=== PATIENT | female | born 1965 | race Caucasian/White ===

== ENCOUNTER 2023-12-29 05:47 | Observation (INO) ==
--- NOTE | 2023-12-07 15:17 | PAT Medication Instructions ---
Medication Instructions Date of Service December 07, 2023 Home Medications Stellalise 1 applic PO QID PRN acetaminophen 325 mg capsule (Tylenol) 650 mg PO QID PRN baclofen 5 mg tablet 5 mg PO DAILY PRN cholecalciferol (vitamin D3) 50 mcg (2,000 unit) capsule (Vitamin D3) 50 mcg PO QAM clonazepam 0.5 mg tablet 0.25 mg PO BID coenzyme Q10 200 mg capsule (Co Q-10) 200 mg PO HS empagliflozin 10 mg tablet (Jardiance) 10 mg PO QAM gabapentin 300 mg capsule 300 mg PO TID PRN hydroxychloroquine 200 mg tablet 200 mg PO QAM insulin glargine 100 unit/mL (3 mL) subcutaneous pen (Lantus Solostar U-100 Insulin) 46 unit subcut HS insulin lispro-aabc 100 unit/mL subcutaneous pen (Lyumjev KwikPen U-100 Insulin) 3 unit subcut TID meloxicam 15 mg tablet 7.5 - 15 mg PO UD methylprednisolone 2 mg tablet 1 mg PO UD metoprolol succinate 25 mg tablet,extended release 24 hr 25 mg PO QAM montelukast 10 mg tablet 10 mg PO QAM oxymetazoline 1 % topical cream (Rhofade) 1 applic topical QAM rosuvastatin 20 mg tablet 20 mg PO HS sacubitril 24 mg-valsartan 26 mg tablet (Entresto) 1 tab PO BID spironolactone 25 mg tablet 25 mg PO QAM venlafaxine 150 mg capsule,extended release 24 hr 150 mg PO QAM vitamin E 2 tab PO QAM STOP 3 days before surgery empagliflozin 10 mg tablet (Jardiance) 10 mg PO QAM Continue as directed methylprednisolone 2 mg tablet 1 mg PO UD baclofen 5 mg tablet 5 mg PO DAILY PRN(if needed) ASK your surgeon for instructions meloxicam 15 mg tablet 7.5 - 15 mg PO UD ASK your prescriber and surgeon hydroxychloroquine 200 mg tablet 200 mg PO QAM STOP taking 2 weeks before surgery (or as soon as possible if surgery is within 2 weeks) vitamin E 2 tab PO QAM coenzyme Q10 200 mg capsule (Co Q-10) 200 mg PO HS STOP taking 24 hours before surgery oxymetazoline 1 % topical cream (Rhofade) 1 applic topical QAM DO NOT take the morning of surgery Stellalise 1 applic PO QID PRN cholecalciferol (vitamin D3) 50 mcg (2,000 unit) capsule (Vitamin D3) 50 mcg PO QAM insulin lispro-aabc 100 unit/mL subcutaneous pen (Lyumjev KwikPen U-100 Insulin) 3 unit subcut TID sacubitril 24 mg-valsartan 26 mg tablet (Entresto) 1 tab PO BID spironolactone 25 mg tablet 25 mg PO QAM Take morning of surgery With a small sip of water, OTHERWISE NOTHING TO EAT OR DRINK AFTER MIDNIGHT: acetaminophen 325 mg capsule (Tylenol) 650 mg PO QID PRN(if needed) clonazepam 0.5 mg tablet 0.25 mg PO BID gabapentin 300 mg capsule 300 mg PO TID PRN(if needed) metoprolol succinate 25 mg tablet,extended release 24 hr 25 mg PO QAM montelukast 10 mg tablet 10 mg PO QAM venlafaxine 150 mg capsule,extended release 24 hr 150 mg PO QAM Take evening before surgery Stellalise 1 applic PO QID PRN(if needed) acetaminophen 325 mg capsule (Tylenol) 650 mg PO QID PRN(if needed) clonazepam 0.5 mg tablet 0.25 mg PO BID gabapentin 300 mg capsule 300 mg PO TID PRN(if needed) insulin glargine 100 unit/mL (3 mL) subcutaneous pen (Lantus Solostar U-100 Insulin) 46 unit subcut HS insulin lispro-aabc 100 unit/mL subcutaneous pen (Lyumjev KwikPen U-100 Insulin) 3 unit subcut TID rosuvastatin 20 mg tablet 20 mg PO HS sacubitril 24 mg-valsartan 26 mg tablet (Entresto) 1 tab PO BID Other Notes If you have any questions please call us at [phone] or [phone] or [phone] or [phone]
--- NOTE | 2023-12-15 13:52 | Anesthesiology Consultation ---
Date of Service December 15, 2023 Assessment & Plan (1) Encounter for pre-operative examination: - Check BSG - Check coags AM DOS (hemolyzed specimen on preop coags- will order for DOS) - Infectious disease screening: Per assessment on 12/15/23: No known infectious disease contacts or current infectious disease symptoms. No noted recent Covid positive test result. - Cardiology visit (10/21/23): "Non ischemic cardiomyopathy, recovered EF now 50- 55%. nuclear stress testing showed no evidence of ischemia, euvolemic on exam.. Check routine echo in 1 year.. Palpitations- improved, c/w PVCs on Cardionet" - Cardiology note (11/29/23): "Low risk.. Patient is cleared for scheduled surgery " - Abnormal preop EKG: ST/TWA, consider anterolateral ischemia. Patient already cleared by cardiology but preop EKG was done after risk assessment and no comparison EKGs available. Note written to cardiology and preop EKG forwarded to them for their review. Cardiology note/response (12/16/23): "No further testing needing from cardiac standpoint. Ok to be cleared. Normal EF on Echo 06/2023." - PCP visit (12/06/23): "Will addend note based on pre-op labs. Plan to clear.." Preop testing forwarded to PCP. Awaiting final PCP clearance (Dr. Henrietat Rivera/[facility]). Patient otherwise acceptable risk for surgery. Chart Review Chart Review: Patient seen in Pre Admission Testing Teaching & Discussion Pre-Anesthesia Teaching/Discussion Notes: Instructed NPO after midnight before surgery,except medications with 15 cc of water. Medication instructions provided according to the PAT guidelines. History Surgery Operation Date: 12/29/23 07:45 Proposed Procedures p C5-C7 Anterior Cervical Discectomy Fusion with Spinal Cord Monitoring - Aung Zapien DO Height/Weight Height: 5 ft 5 in Weight: 85.6 kg Allergies Allergy/AdvReac Type Severity Reaction Status Date / Time atorvastatin Allergy Unknown Verified 12/16/23 10:38 celecoxib Allergy Unknown Verified 12/16/23 10:38 codeine Allergy Unknown Verified 12/16/23 10:38 divalproex sodium Allergy Unknown Verified 12/16/23 10:38 hydrocodone Allergy Unknown Verified 12/16/23 10:38 imipramine Allergy Tongue Verified 12/16/23 10:38 swelling, "funny feeling" penicillin G Allergy Hives Verified 12/01/23 13:41 Penicillins Allergy See Verified 12/16/23 10:38 comments pregabalin Allergy Unknown Verified 12/16/23 10:38 sertraline Allergy Tongue Verified 12/16/23 10:38 swelling, "funny feeling" Medications Home Medications Medication Instructions Recorded Confirmed Last Taken Stellalise 1 applic PO QID PRN oral pain 12/01/23 12/01/23 Unknown acetaminophen 325 mg capsule 650 mg PO QID PRN Pain 12/01/23 12/01/23 Unknown (Tylenol) baclofen 5 mg tablet 5 mg PO DAILY PRN muscle spasms 12/01/23 12/01/23 Unknown cholecalciferol (vitamin D3) 50 50 mcg PO QAM 12/01/23 12/01/23 Unknown mcg (2,000 unit) capsule (Vitamin D3) clonazepam 0.5 mg tablet 0.25 mg PO UD 12/01/23 12/16/23 Unknown coenzyme Q10 200 mg capsule (Co 200 mg PO DAILY 12/01/23 12/16/23 Unknown Q-10) empagliflozin 10 mg tablet 10 mg PO QAM 12/01/23 12/01/23 Unknown (Jardiance) gabapentin 300 mg capsule 300 mg PO TID PRN Pain 12/01/23 12/01/23 Unknown hydroxychloroquine 200 mg tablet 200 mg PO QAM 12/01/23 12/01/23 Unknown insulin glargine 100 unit/mL (3 46 unit subcut HS 12/01/23 12/01/23 Unknown mL) subcutaneous pen (Lantus Solostar U-100 Insulin) insulin lispro-aabc 100 unit/mL 3 unit subcut TID 12/01/23 12/01/23 Unknown subcutaneous pen (Lyumjev KwikPen U-100 Insulin) meloxicam 15 mg tablet 7.5 - 15 mg PO UD 12/01/23 12/01/23 Unknown methylprednisolone 2 mg tablet 1 mg PO UD 12/01/23 12/01/23 Unknown metoprolol succinate 25 mg 25 mg PO QAM 12/01/23 12/01/23 Unknown tablet,extended release 24 hr montelukast 10 mg tablet 10 mg PO QAM 12/01/23 12/01/23 Unknown oxymetazoline 1 % topical cream 1 applic topical QAM 12/01/23 12/01/23 Unknown (Rhofade) rosuvastatin 20 mg tablet 20 mg PO HS 12/01/23 12/01/23 Unknown sacubitril 24 mg-valsartan 26 mg 1 tab PO BID 12/01/23 12/01/23 Unknown tablet (Entresto) spironolactone 25 mg tablet 25 mg PO QAM 12/01/23 12/01/23 Unknown venlafaxine 150 mg 150 mg PO QAM 12/01/23 12/01/23 Unknown capsule,extended release 24 hr vitamin E 2 tab PO QAM 12/01/23 12/01/23 Unknown Past Medical History Medical History BPV (benign positional vertigo) Diabetes mellitus, type 2 IDDM History of COVID-19 08/2020 (home test): symptoms resolved except residual intermittent cough (nighttime) Hx-TIA (transient ischemic attack) 2009 Hyperlipidemia Hypertension [facility] Migraines Nonischemic cardiomyopathy Follows with Dr. Hazel PVCs (premature ventricular contractions) Rheumatoid arthritis Per received PCP records Undifferentiated connective tissue disease Reason for chronic methylprednisolone per patient Exercise / Class Metabolic Activity II 4-5 Yardwork/Stairs/Walk up hill (one FS: no CP, no SOB) Past Surgical History Surgical History History of esophagogastroduodenoscopy (EGD) Hx of colonoscopy Hx of shoulder surgery left Hx of total hysterectomy with removal of both tubes and ovaries Nausea and vomiting after administration of anesthetic agent years ago, fine with most recent sx on shoulder Past Anesthesia History No Family Hx of Anesthesia Complications (except mother with PONV) History of PONV History of PONV and Hx of Motion Sickness (Mild) Social History Smoking Status: Never smoker Do You Dip or Chew Tobacco: No Hx Alcohol Use: Yes alcohol intake frequency: holidays/special occasions only Hx Substance Use: No substance use type: does not use Review of Systems Patient denies chest pain, shortness of breath, dyspnea on exertion, fever, chills, cough, wheezing, palpitations. Physical Exam Vital Signs BP 103/68 P 75 TEMP 97.9 SP02 97%RA RESP 18 Physical Full cervical extension range of motion. Full TMJ range of motion. TMD 3 finger breaths Mallampati Score 3 Dentition: intact, + crown (molar) Lungs: clear throughout to auscultation Cardiac: regular rate and rhythm, no murmurs noted Spine: normal Carotid arteries: negative bruit Extremities: no LE edema Lab Results Anesthesia Preop Results Results Anesthesia Widget: WBC 8.60 K/ul (4.8-10.8) 12/15/23 Hgb 14.3 g/dl (12.0-16.0) 12/15/23 Hct 41.9 % (37.0-47.0) 12/15/23 Plt 269 K/uL (130-400) 12/15/23 Na 140 mmol/L (136-145) 12/15/23 K 4.4 mmol/L (3.5-5.1) 12/15/23 Cl 104 mmol/L (98-107) 12/15/23 CO2 28 mmol/L (21-32) 12/15/23 BUN 21 mg/dl (6-23) 12/15/23 Creat 0.64 mg/dl (0.6-1.2) 12/15/23 Glucose Level 118 mg/dl (70-99(Fasting)) H 12/15/23 Urine Color Yellow 12/15/23 Urine Appearance Clear (Clear) 12/15/23 Urine pH 5.0 (4.5-7.5) 12/15/23 Urine Specific [place] 1.044 (1.000-1.030) H 12/15/23 Urine Protein Negative (Negative) 12/15/23 Urine Glucose (UA) 3+ (Negative) H 12/15/23 Urine Ketones Negative (Negative) 12/15/23 Urine Blood Negative (Negative) 12/15/23 Urine Nitrite Negative (Negative) 12/15/23 Urine Bilirubin Negative (Negative) 12/15/23 Urine Urobilinogen Negative (Negative) 12/15/23 Urine Leukocyte Esterase Negative (Negative) 12/15/23 Blood Type A Positive 12/15/23 Antibody Screen NEGATIVE 12/15/23 Testing Laboratory Results Hgba1c (11/22/23): 7.7% Electrocardiogram Date: 12/15/[address]/TWA, consider anterolateral ischemia. Prolonged QT. Echocardiogram Date: 07/16/23 EF 50-55%. Thickened aortic valve. Aortic valve area is 1.9cm2, MG 3.8mmhg. Mild TR. Normal diastolic function. Stress Test Date: 06/01/22 No clear perfusion defect, but there is systolic LV dysfunction, rest EF 42%, post stress EF 46%. Mild diffuse HK. Non-diagnostic ECG response to regadenoson. LBBB.
[2023-12-29] MEDS: VANCOMYCIN HCL 1,250 MG in SODIUM CHLORIDE 0.9% 250 ML IV SCH (06:19)
[2023-12-29] MEDS: GABAPENTIN 600 MG DOSE PO SCH (06:19)
[2023-12-29] MEDS: ACETAMINOPHEN 500 MG TAB PO SCH (06:19)
[2023-12-29] MEDS: LR 15ML/HR IV SCH (06:20)
[2023-12-29] MEDS: LR 60ML/HR IV SCH (06:20)
[2023-12-29] MEDS ORDERED: LIDOCAINE 2% 2 ML VIAL/AMP(20MG/ML) INFIL ONE (06:57)
[2023-12-29] MEDS ORDERED: DEXAMETHASONE SOD INJ 4 MG/ML VIAL ONE (06:57)
[2023-12-29] MEDS ORDERED: ROCURONIUM BROMIDE 10 MG/ML 5 ML VIAL IV ONE ×2 (06:57→08:25)
[2023-12-29] MEDS ORDERED: ONDANSETRON INJ 2 MG/ML 2 ML VIAL ONE (06:57)
[2023-12-29] MEDS ORDERED: PROPOFOL IV EMULSION 10 MG/ML 20 ML VIAL IV ONE ×3 (06:57→07:01)
[2023-12-29] MEDS ORDERED: MIDAZOLAM HCL 1 MG/ML 2ML VIAL ONE (06:58)
[2023-12-29] MEDS ORDERED: fentaNYL citrate PF 100 MCG/2 ML VIAL ONE ×2 (06:58→08:29)
[2023-12-29 07:03] LABS: INR 0.9 (0.9-1.1); Partial Thromboplastin Time 27 Seconds (21-31); Prothrombin Time 10.2 Seconds (9.0-12.0)
[2023-12-29] MEDS ORDERED: PROMETHAZINE HCL 6.25 MG in SODIUM CHLORIDE 0.9% 50 ML IV PRN (07:06)
[2023-12-29] MEDS ORDERED: ATROPINE SULFATE 0.1 MG/ML 10ML SYR IV PRN (07:06)
[2023-12-29] MEDS ORDERED: ePHEDrine sulfate 50 MG/ML AMP IV PRN (07:06)
[2023-12-29] MEDS ORDERED: ONDANSETRON INJ 2 MG/ML 2 ML VIAL IV PRN ×2 (07:06→11:06)
[2023-12-29] MEDS ORDERED: PHENYLEPHRINE HCL 10 MG/ML VIAL ONE (07:23)
--- NOTE | 2023-12-29 07:40 | History & Physical Report ---
Date of Service December 29, 2023 Assessment & Plan (1) Cervical stenosis of spinal canal: Plan: Anterior cervical discectomy and fusion C5-C7 History of Present Illness Chief Complaint: Neck and arm pain Primary Care Provider: Henrietta Rivera DO This is a 58-year-old female presents with chronic persistent neck and arm pain after failing extensive course of nonoperative care is here for surgical intervention. Allergies Allergy/AdvReac Type Severity Reaction Status Date / Time atorvastatin Allergy Unknown Verified 12/29/23 06:13 celecoxib Allergy Unknown Verified 12/29/23 06:13 codeine Allergy Unknown Verified 12/29/23 06:13 divalproex sodium Allergy Unknown Verified 12/29/23 06:13 hydrocodone Allergy Unknown Verified 12/29/23 06:13 imipramine Allergy Tongue Verified 12/29/23 06:13 swelling, "funny feeling" penicillin G Allergy Hives Verified 12/29/23 06:13 Penicillins Allergy See Verified 12/29/23 06:13 comments pregabalin Allergy Unknown Verified 12/29/23 06:13 sertraline Allergy Tongue Verified 12/29/23 06:13 swelling, "funny feeling" Home Medications Medication Instructions Recorded Confirmed Type Stellalise 1 applic PO QID PRN oral pain 12/01/23 12/29/23 History acetaminophen 325 mg capsule 650 mg PO QID PRN Pain 12/01/23 12/29/23 History (Tylenol) baclofen 5 mg tablet 5 mg PO DAILY PRN muscle spasms 12/01/23 12/29/23 History cholecalciferol (vitamin D3) 50 50 mcg PO QAM 12/01/23 12/29/23 History mcg (2,000 unit) capsule (Vitamin D3) clonazepam 0.5 mg tablet 0.25 mg PO UD 12/01/23 12/29/23 History coenzyme Q10 200 mg capsule (Co 200 mg PO DAILY 12/01/23 12/29/23 History Q-10) empagliflozin 10 mg tablet 10 mg PO QAM 12/01/23 12/29/23 History (Jardiance) gabapentin 300 mg capsule 300 mg PO TID PRN Pain 12/01/23 12/29/23 History hydroxychloroquine 200 mg tablet 200 mg PO QAM 12/01/23 12/29/23 History insulin glargine 100 unit/mL (3 46 unit subcut HS 12/01/23 12/29/23 History mL) subcutaneous pen (Lantus Solostar U-100 Insulin) insulin lispro-aabc 100 unit/mL 3 unit subcut TID 12/01/23 12/29/23 History subcutaneous pen (Lyumjev KwikPen U-100 Insulin) meloxicam 15 mg tablet 7.5 - 15 mg PO UD 12/01/23 12/29/23 History methylprednisolone 2 mg tablet 1 mg PO UD 12/01/23 12/29/23 History metoprolol succinate 25 mg 25 mg PO QAM 12/01/23 12/29/23 History tablet,extended release 24 hr montelukast 10 mg tablet 10 mg PO QAM 12/01/23 12/29/23 History oxymetazoline 1 % topical cream 1 applic topical QAM 12/01/23 12/29/23 History (Rhofade) rosuvastatin 20 mg tablet 20 mg PO HS 12/01/23 12/29/23 History sacubitril 24 mg-valsartan 26 mg 1 tab PO BID 12/01/23 12/29/23 History tablet (Entresto) spironolactone 25 mg tablet 25 mg PO QAM 12/01/23 12/29/23 History venlafaxine 150 mg 150 mg PO QAM 12/01/23 12/29/23 History capsule,extended release 24 hr vitamin E 2 tab PO QAM 12/01/23 12/29/23 History Past Med/Surg History Medical History BPV (benign positional vertigo) Diabetes mellitus, type 2 IDDM History of COVID-19 08/2020 (home test): symptoms resolved except residual intermittent cough (nighttime) Hx-TIA (transient ischemic attack) 2009 Hyperlipidemia Hypertension Liver disease Non-alcoholic Follows with Dr. Thompson ([facility] [place]) Migraines Nonischemic cardiomyopathy Follows with Dr. Hazel PVCs (premature ventricular contractions) Rheumatoid arthritis Per received PCP records Undifferentiated connective tissue disease Reason for chronic methylprednisolone per patient Surgical History History of esophagogastroduodenoscopy (EGD) Hx of colonoscopy Hx of shoulder surgery left Hx of total hysterectomy with removal of both tubes and ovaries Nausea and vomiting after administration of anesthetic agent years ago, fine with most recent sx on shoulder Social History Smoking Status: Never smoker Second Hand Exposure: Yes (hx as child); Do You Dip or Chew Tobacco: No; Tobacco Cessation Education Requested by Patient: No Hx Alcohol Use: Yes Hx Substance Use: No Preferred Language: Trinidadian Communication Ability: Effective Horologist Required: No Beliefs That Will Affect Care: None Current Living Situation: Spouse and Family Other Information That Helps Us Care for You: No Feels Safe at Home: Yes Safety Concerns: Feels Safe At This Time Assistive Devices: Contacts and Glasses Physical Exam Physical Exam: Patient is alert and oriented Heart regular rhythm Lungs clear Results & Data Results & Data Vital Signs (Past 12 Hours) Vital Signs Temp Pulse Resp BP Pulse Ox O2 Del Method 12/29/23 06:05 37.1 C 72 20 132/54 L 96 Room Air
--- NOTE | 2023-12-29 07:40 | History & Physical Bridge Note ---
Date of Service December 29, 2023 History & Physical Bridge Note I have examined the patient, reviewed the History & Physical and in the interval since the performance of the History & Physical I have noted the following changes of clinical significance: no changes noted
[2023-12-29] MEDS: BUPIVACAINE/EPINEPHRINE 0.5% MPF 1:200,000 30 ML VIAL ONE (08:26)
[2023-12-29] MEDS: BUPIVACAINE/EPINEPHRINE 0.25% 1:200,000 30 ML VIAL ONE (08:27)
[2023-12-29] MEDS ORDERED: ePHEDrine sulfate 50 MG/5 ML SYR ONE (08:44)
[2023-12-29] MEDS: ceFAZolin 330 MG/ML 1 GM VIAL ONE (09:08)
[2023-12-29] MEDS ORDERED: SUGAMMADEX SODIUM 200 MG/2 ML VIAL IV ONE (09:09)
--- NOTE | 2023-12-29 09:14 | Operative Report ---
Post Operative Report Pre & Post Diagnosis Operation Date: 12/29/23 07:45 Pre-Op Diagnosis: Cervical spondylosis with radiculopathy Post-Op Diagnosis: Same I identified the patient and participated in the time-out.: Yes Procedure Operation Date: 12/29/23 07:45 Actual Procedures #1 anterior cervical discectomy with bilateral foraminotomies C5-C6 C6-C7. #2 anterior cervical arthrodesis C5-C6 C6-C7. #3 placement of Spira 7 mm cage at C5-C6 and 8 mm cage at C6-C7 both filled with I factor. #4 application of K2 M plate and screws from C5-C7. Surgeon Aung Zapien, Float Tender Vero Mckenna Estimated Blood Loss 10 Findings Consistent with Post-Op Diagnosis Specimens None Indications This is a 58-year-old female presents above-mentioned diagnosis after failing course of nonoperative care is here for surgical invention. Description of Procedure Patient was met with identified informed consent obtained. Patient was then taken to the operative suite underwent intubation placed in a supine position the Ryan table with head [place] head wrestling coach. All bony prominences well- padded eyes inspected to ensure no external pressure placed upon them. This point the anterior cervical spine was prepped and draped in normal sterile fashion. With the assistance of fluoroscopy identified the C6 vertebral body and a transverse incision was placed along the right anterior aspect of the cervical spine overlying his region. Blunt dissection with the assistance of bipolar Cardizem form down to and exposing the anterior cervical spine from C5- C7. Self-retaining retractors placed. Then performed a complete discectomy of C5-C6 out to the uncovertebral joints bilaterally. Silver Star distracting pins utilized to assist in visualization. Removed all posterior annular fibers longitudinal ligament bilateral foraminotomies were performed. Endplates burred to subcortical bleeding bone and a 7 mm Spira cage filled with I factor tapped in position. Then proceeded to C6-C7. Again complete discectomy performed to the uncompleted joints bilaterally. Silver Star distraction pins again utilized. Removed all posterior annular fibers longitudinal ligament bilateral foraminotomies performed and a 8 mm Spira cage with I factor tapped in position. Distracting apparatus was removed. All anterior osteophytes burred to a smooth cortical surface and a K2 M plate and screws applied with the assistance of fluoroscopy. The incision was then copiously irrigated explored to ensure no damage to surrounding structures remaining bleeding. 10 round SAMIR drain inserted. The incision was then closed with 2 Vicryl in the fascia and 4 Monocryl for final skin closure. Steri-Strip sterile dressing placed. Patient awakened taken to PACU stable condition. Please note spinal cord monitoring visualized at the procedure no changes noted. Lastly Vero Mckenna was present at the entire surgeon while the patient positioning complex course of the surgery and final skin closure. I attest to the content of the Intraoperative Record and any orders documented therein. Any exceptions are noted below.
[2023-12-29] MEDS: fentaNYL citrate PF 100 MCG/2 ML VIAL IV PRN (10:21)
[2023-12-29] MEDS: FLOSEAL HEMOSTATIC MATRIX 10ML TOP ONE (10:41)
[2023-12-29] MEDS: SODIUM CHLORIDE 0.9% 1,000 ML IV SCH (10:55)
[2023-12-29] MEDS ORDERED: diphenhydrAMINE Capsule 25 MG CAP PO PRN (11:06)
[2023-12-29] MEDS ORDERED: LORazepam 0.5 MG in SYRINGE 0.25 ML IV PRN (11:06)
[2023-12-29] MEDS ORDERED: MAGNESIUM HYDROXIDE SUSP 30 ML UDC PO PRN (11:06)
[2023-12-29] MEDS ORDERED: bisacodyL 10 MG SUPP PR PRN (11:06)
[2023-12-29] MEDS ORDERED: dexAMETHasone 8 MG in SYRINGE 0 ML IV PRN (11:06)
[2023-12-29] MEDS ORDERED: HYDROmorphone INJ 0.5 MG/0.5 ML SYR IV PRN (11:06)
[2023-12-29] MEDS ORDERED: DO NOT ADMINISTER PNEUMOCOCCAL VACCINE PRN (11:06)
[2023-12-29] MEDS ORDERED: clonazePAM 0.5 MG TAB PO SCH (11:06)
[2023-12-29] MEDS ORDERED: ONDANSETRON 4 MG OD TAB PO PRN (11:06)
[2023-12-29] MEDS ORDERED: PROMETHAZINE HCL 12.5 MG in SODIUM CHLORIDE 0.9% 50 ML IV PRN (11:06)
[2023-12-29] MEDS ORDERED: GABAPENTIN 300 MG CAP PO PRN (11:06)
[2023-12-29] MEDS ORDERED: FAMOTIDINE 20 MG TAB PO PRN (11:06)
[2023-12-29] MEDS ORDERED: SOD PHOSPHATE/SOD BIPHOSPHATE ENEMA 132 ML BTL PR PRN (11:06)
[2023-12-29] MEDS ORDERED: ACETAMINOPHEN 500 MG TAB PO PRN (11:06)
[2023-12-29] MEDS ORDERED: LORazepam 0.5 MG TAB PO PRN (11:06)
[2023-12-29] MEDS ORDERED: PHARMACY GLYCEMIC MGMT CONSULT PRN (11:06)
[2023-12-29] MEDS ORDERED: DO NOT ADMINISTER FLU VACCINE PRN (11:06)
[2023-12-29] MEDS ORDERED: METOCLOPRAMIDE HCL INJ 5 MG/ML 2 ML VIAL IV PRN (11:06)
[2023-12-29] MEDS ORDERED: hydrOXYzine HCl 25 MG TAB PO PRN (11:06)
[2023-12-29] MEDS ORDERED: ACETAMINOPHEN 1,000 MG/100 ML VIAL IV PRN (11:06)
[2023-12-29] MEDS ORDERED: RACEPINEPHRINE 2.25% NEBU SOLN 0.5 ML VIAL INH PRN (11:06)
[2023-12-29] MEDS ORDERED: ALUMINUM/MAGNESIUM SUSP 30 ML UDC PO PRN (11:06)
[2023-12-29] MEDS ORDERED: NALOXONE HCL 0.4 MG/1 ML VIAL/CARP IV PRN (11:06)
--- NOTE | 2023-12-29 11:34 | Fluoroscopy Report ---
FL cervical 2-3V CLINICAL HISTORY: C5-C7 ACDF COMPARISON STUDY: None. FLUOROSCOPY TIME: 12 seconds FLUOROSCOPY IMAGES: 3 Ka,r: 2.0 mGy FINDINGS: Anterior cervical discectomy and fusion from C5 through C7. The hardware appears intact. An endotracheal tube and surgical drain are partially visualized. IMPRESSION: Fluoroscopic assistance as above. ACT 112: Negative or not required by law. Electronically signed by: Piero Burns M.D. 12/29/2023 11:33 AM
--- NOTE | 2023-12-29 11:36 | Anesthesiology Progress Note ---
Date of Service December 29, 2023 Anesthesia Post Procedure Vital Signs Vital Signs: Temp Pulse Pulse Resp BP BP Pulse Ox 12/29/23 11:20 97.5 F L 75 18 115/76 97 12/29/23 11:02 18 97 12/29/23 10:50 12/29/23 10:50 97.9 F 75 16 136/86 96 12/29/23 10:30 97.7 F 68 14 113/84 92 12/29/23 10:20 66 14 118/78 96 12/29/23 10:10 70 14 133/74 97 12/29/23 10:00 65 14 127/86 98 12/29/23 09:50 64 12 137/70 97 12/29/23 09:40 67 12 132/77 100 12/29/23 09:30 97.7 F 67 14 137/81 95 12/29/23 06:05 98.8 F 72 20 132/54 L 96 O2 Del Method O2 Flow Rate 12/29/23 11:20 Nasal Cannula 2 12/29/23 11:02 Nasal Cannula 2 12/29/23 10:50 Nasal Cannula 2 12/29/23 10:50 Nasal Cannula 2 12/29/23 10:30 Nasal Cannula 2 12/29/23 10:20 Nasal Cannula 2 12/29/23 10:10 Nasal Cannula 2 12/29/23 10:00 Nasal Cannula 2 12/29/23 09:50 Nasal Cannula 2 12/29/23 09:40 Oxymask 5 12/29/23 09:30 Oxymask 10 12/29/23 06:05 Room Air Pain Intensity Left Lower Neck: Pain Intensity: 7 Neck: Pain Intensity: 2 Transfer of Care Handoff Completed per policy Notes Mental Status: alert / awake / arousable and participated in evaluation Patient Amnestic to Procedure: Yes Nausea / Vomiting: adequately controlled Pain: adequately controlled Airway Patency, RR, SpO2: stable & adequate BP & HR: stable & adequate Hydration State: stable & adequate Anesthetic Complications: no major complications apparent and Pt Satisfied with anesthetic care
[2023-12-29] MEDS: traMADol HCL 50 MG TABLET PO PRN (11:57)
[2023-12-29] MEDS ORDERED: GLUCOSE 40% GEL 15 GM TUBE PO PRN (12:15)
[2023-12-29] MEDS ORDERED: CARBOHYDRATES FOR HYPOGLYCEMIA PO PRN (12:15)
[2023-12-29] MEDS ORDERED: GLUCOSE 10 TAB/TUBE PO PRN (12:15)
[2023-12-29] MEDS ORDERED: GLUCAGON FOR INJ 1 MG VIAL IM PRN (12:15)
[2023-12-29] MEDS ORDERED: DEXTROSE 50% 50 ML SYRINGE IV PRN (12:15)
--- NOTE | 2023-12-29 12:15 | Pharmacy Report ---
Pharmacy Glycemic Short Note 2 - Date of Service December 29, 2023 - Glycemic Short BSG Results (Last 24 hours): 12/29/23 12/29/23 12/29/23 06:10 09:33 10:58 POC Glucose 173 H 187 H 202 H OUTPATIENT ANTIDIABETIC REGIMEN: * Insulin lispro 3 units SQ TID with meals * Insulin glargine 46 units SQ HS * Jardiance 10mg PO Daily * A1c pending ASSESSMENT: * 58 yo F, s/p spinal surgery with Dr Zapien. Type 2 DM. Hyperglycemic post-op, received 8mg IV Dexamethasone intraop, continues 6mg IV Daily x 3 days. * Oral agents are not recommended for inpatient use d/t drug interactions, changing PO intake, and difficulty titrating for acute hyper/hypoglycemia. * Will hold oral agents for admission and utilize SQ basal bolus insulin regimen which is the recommended regimen for inpatient glycemic control. * Lantus dose now to cover steroids, then HS for usual home dose, or an increased dose if still hyperglycemic at that time. * Titrate to goal blood sugar. PLAN FOR INPATIENT GLYCEMIC CONTROL: * Hold outpatient oral diabetes medications * Basal insulin * Lantus 30 units SQ x 1 dose now, 46 units HS (or 55 units for BSG>180mg/dl), further AM Lantus dosing tomorrow morning * Bolus insulin * NovoLog per scale ACHS or Q6hrs while NPO * Goal Range: Low 110 mg/dL - High 140 mg/dL * Correction Factor: 15 mg/dL/unit * Nutritional / Prandial insulin per carb ratio of 1 unit per 4 grams CHO consumed
[2023-12-29] MEDS: INSULIN ASPART PER UNIT CHARGE SC SCH (12:37)
[2023-12-29] MEDS: LANTUS PER UNIT CHARGE SC ONE (12:38)
--- NOTE | 2023-12-29 13:22 | Consultation ---
Date of Consultation December 29, 2023 Assessment & Plan (1) S/P spinal surgery: (2) Cervical stenosis of spinal canal: POD#0 S/P ACDF today by Dr. Zapien Activity and wound care orders as per ortho Pain control with bowel regimen as per ortho PT/OT as appropriate Monitor H/H for acute blood loss anemia and transfuse blood products PRN; Pre-op Hgb of 14.3 EBL: 10mL (3) Rheumatoid arthritis: (4) Undifferentiated connective tissue disease: -Chronic, stable -Is on chronic steroids, methylprednisolone 2mg Q2D. Last dose today. -Plan to restart at-home dose of methylprednisolone on 01/01, following completion of IV dexamethasone ordered by the primary surgical team. -Home meloxicam is on hold per primary team -Continue hydroxychloroquine 200mg PO QAM -Follows with rheumatology, Dr. Hernandes (5) Diabetes mellitus, type 2: -Insulin dependent, last A1C unknown -Plan to repeat A1C in AM -Appreciate input and management from glycemic control pharmacist. -Reconciled home dose of insulin lispro (6) Nonischemic cardiomyopathy: -07/22 echo report EF 50-55% and no diastolic dysfunction noted -Appears euvolemic -Continue Entresto, metoprolol -Hold spironolactone, reassess tomorrow -Hold home Jardiance (7) PVCs (premature ventricular contractions): (8) Palpitations: -Hx of palpitations, PVCs -Follows with cardiology, Leatha Luna -Continue metoprolol (9) Fatty liver disease, nonalcoholic: -Hx of chronically elevated LFTs -Reviewed 06/15/23, AST 60, ALT 78, Alk phos 67, T bili 0.5 -Follows with GI (10) Anxiety: -Continue venlafaxine -Continue clonazepam PRN (11) Hyperlipidemia: -Continue rosuvastatin DVT Prophylaxis: SCDs Code Status: Full Code - Discussed with patient, does not prolonged life support if poor prognosis. PCP: Dr. Henrietta Rivera, DO Dispo: Per primary team Patient seen in collaboration with Dr. Hanson. Please see addendum. Thank you for this consultation. We will follow the patient with you during their hospital stay. You can [facility] a [facility] via [email or web address]. I spent a total of 75 minutes coordinating, documenting, and providing care for this patient excluding time spent in the performance of separately billed services. This included personally reviewing all current laboratories and imaging studies, medical reconciliation, outpatient chart review and discussion with specialists. Supervising Physician Co-Signing Physician Notes Patient was seen and examined independently at bedside. Chart reviewed. Case discussed with Kendy MORA and agree with the documentation above. In summary, this is a 58 year old female who underwent elective ACDF with Dr Zapien today. Seen post operatively. She is doing good. Denies any pain. No CP, SOB, N/V. Tolerated diet well. Voiding without issues. Passed gas. Further management per orthopedic team. Glycemic pharmacist consulted by primary team. Vitals stable. Chronic medical conditions stable. On exam- General: Sitting comfortably in chair, not in distress, on room air HEENT: EOMI, CAM, MMM. Neck collar noted. SAMIR drain with serosang output Chest: Clear breath sounds bilaterally, no wheezes or crackles CVS: Regular rate and rhythm, normal heart sounds, no murmur Abdomen: Soft, non tender, not distended, normal bowel sounds Neuro: Awake, alert, oriented, conversing well, non focal Extremities: No edema History of Present Illness Requesting Physician: Aung Zapien DO Reason for Consultation: Post-Operative Medical Management Attending Physician: Aung Zapien DO History of Present Illness Cherise Ray is a 58y/o F with PMHx of rheumatoid arthritis, connective tissue disorder, nonischemic cardiomyopathy, palpitations/PVCs, fatty liver disease, migraines, TIA, BPV, hyperlipidemia, HTN and type II DM who presented to the hospital this morning to undergo elective C5-C7 anterior cervical discectomy fusion for the treatment of cervical spondylosis with radiculopathy. Seen in consultation by Dr. Zapien for post-operative medical management. History obtained from patient, and previous PCP/surgical records. As stated previously, patient underwent ACDF this morning with Dr. Zapien. Patient was seen this afternoon at bedside post-operatively, and was accompanied in the room by her spouse. Patient reports no pain at this time, and denies experiencing any SOB or chest pain. Patient states that the pain/numbness/tingling she was having in her left arm before the surgical procedure has completely gone away in the post- operative period. Patient further denies any bowel habit changes, urinary issues, increased anxiety, N/V, belly pain and headaches. No dysphagia, is tolerating sips of water at this time. Patient has not urinated yet since arriving on the floor. Overall, patient is feeling well post-operatively. Allergies Allergy/AdvReac Type Severity Reaction Status Date / Time atorvastatin Allergy Unknown Verified 12/29/23 06:13 celecoxib Allergy Unknown Verified 12/29/23 06:13 codeine Allergy Unknown Verified 12/29/23 06:13 divalproex sodium Allergy Unknown Verified 12/29/23 06:13 hydrocodone Allergy Unknown Verified 12/29/23 06:13 imipramine Allergy Tongue Verified 12/29/23 06:13 swelling, "funny feeling" penicillin G Allergy Hives Verified 12/29/23 06:13 Penicillins Allergy See Verified 12/29/23 06:13 comments pregabalin Allergy Unknown Verified 12/29/23 06:13 sertraline Allergy Tongue Verified 12/29/23 06:13 swelling, "funny feeling" Home Medications Medication Instructions Recorded Confirmed Type Stellalise 1 applic PO QID PRN oral pain 12/01/23 12/29/23 History acetaminophen 325 mg capsule 650 mg PO QID PRN Pain 12/01/23 12/29/23 History (Tylenol) baclofen 5 mg tablet 5 mg PO DAILY PRN muscle spasms 12/01/23 12/29/23 History cholecalciferol (vitamin D3) 50 50 mcg PO QAM 12/01/23 12/29/23 History mcg (2,000 unit) capsule (Vitamin D3) clonazepam 0.5 mg tablet 0.25 mg PO BID PRN Anxiety 12/01/23 12/29/23 History coenzyme Q10 200 mg capsule (Co 200 mg PO DAILY 12/01/23 12/29/23 History Q-10) empagliflozin 10 mg tablet 10 mg PO QAM 12/01/23 12/29/23 History (Jardiance) gabapentin 300 mg capsule 300 mg PO HS PRN Pain 12/01/23 12/29/23 History hydroxychloroquine 200 mg tablet 200 mg PO QAM 12/01/23 12/29/23 History insulin glargine 100 unit/mL (3 46 unit subcut HS 12/01/23 12/29/23 History mL) subcutaneous pen (Lantus Solostar U-100 Insulin) insulin lispro-aabc 100 unit/mL 8 unit subcut UD 12/01/23 12/29/23 History subcutaneous pen (Lyumjev KwikPen U-100 Insulin) meloxicam 15 mg tablet 7.5 mg PO Q2D 12/01/23 12/29/23 History metoprolol succinate 25 mg 25 mg PO QAM 12/01/23 12/29/23 History tablet,extended release 24 hr montelukast 10 mg tablet 10 mg PO QAM 12/01/23 12/29/23 History oxymetazoline 1 % topical cream 1 applic topical QAM 12/01/23 12/29/23 History (Rhofade) rosuvastatin 20 mg tablet 20 mg PO HS 12/01/23 12/29/23 History sacubitril 24 mg-valsartan 26 mg 1 tab PO BID 12/01/23 12/29/23 History tablet (Entresto) spironolactone 25 mg tablet 25 mg PO QAM 12/01/23 12/29/23 History venlafaxine 150 mg 150 mg PO QAM 12/01/23 12/29/23 History capsule,extended release 24 hr vitamin E 2 tab PO QAM 12/01/23 12/29/23 History meloxicam 15 mg tablet 15 mg PO Q2D 12/29/23 12/29/23 History methylprednisolone 4 mg tablet 2 mg PO Q2D 12/29/23 12/29/23 History oxycodone 5 mg tablet 5 mg PO Q6H PRN pain #20 tabs 12/29/23 12/29/23 Rx tramadol 50 mg tablet 50 mg PO Q6H PRN pain, moderate 12/29/23 12/29/23 Rx #20 tabs Patient History Medical History (Updated 12/29/23 @ 14:57 by Kendy Kohler PA-C) Anxiety Fatty liver disease, nonalcoholic Palpitations Diabetes mellitus, type 2 IDDM Rheumatoid arthritis Per received PCP records Nonischemic cardiomyopathy Follows with Dr. Hazel PVCs (premature ventricular contractions) Undifferentiated connective tissue disease Reason for chronic methylprednisolone per patient Liver disease Non-alcoholic Follows with Dr. Thompson ([facility]) Migraines Hx-TIA (transient ischemic attack) 2009 History of COVID-19 08/2020 (home test): symptoms resolved except residual intermittent cough (nighttime) BPV (benign positional vertigo) Hyperlipidemia Hypertension Surgical History (Updated 12/29/23 @ 15:33 by Kendy Kohler PA-C) S/P spinal surgery ACDF performed on 12/29/[address] Zapien at [facility]. Nausea and vomiting after administration of anesthetic agent years ago, fine with most recent sx on shoulder Hx of total hysterectomy with removal of both tubes and ovaries Hx of shoulder surgery left History of esophagogastroduodenoscopy (EGD) Hx of colonoscopy Social History Smoking Status: Never smoker Second Hand Exposure: Yes (hx as child); Do You Dip or Chew Tobacco: No; Tobacco Cessation Education Requested by Patient: No Hx Alcohol Use: Yes Hx Substance Use: No Preferred Language: Uzbek Communication Ability: Effective Cheese Packer Required: No Beliefs That Will Affect Care: None Current Living Situation: Spouse and Family Other Information That Helps Us Care for You: No Feels Safe at Home: Yes Safety Concerns: Feels Safe At This Time Assistive Devices: Contacts and Glasses Review of Systems Review of Systems: At least ten systems reviewed and negative, except as noted in the HPI. Physical Exam Physical Exam: General Appearance: WD/WN, vitals as above, NAD, sitting up in bed, pleasant, conversing. Patient is wearing neck brace for stabilization. SAMIR drain present with scant amount of serosanguineous drainage at this time. Head: Normocephalic, atraumatic Eyes: Normal inspection, PERRL, conjunctivae normal, anicteric sclerae ENT: External ear and nose normal, oropharynx normal Neck: White bandage present on the anterior aspect of the neck, no bleeding noted from this surgical access site. Respiratory: Normal respiratory effort, lungs clear to auscultation, no wheeze, rales, rhonchi. No accessory muscle use. Cardiovascular: Regular rate, rhythm, no murmur, normal peripheral pulses, no BLE edema. Patient is wearing SCDs. Chest: Normal inspection of chest Abdomen/GI: Normal bowel sounds, soft, nontender, no hepatosplenomegaly Extremities/Musculoskeletal: No cyanosis or clubbing; bilateral lay out and detail drafter strength strong and intact, equal bilaterally. Neurologic: PERRL, EOMI, accommodation nl, no face palsy, no dysarthria, CN's II-XI intact bilaterally and moves all extremities Psychiatric: A+Ox3, euthymic affect Skin: No rashes, normal color, warm/dry Results & Data Vital Signs (Past 12 Hours) Vital Signs Temp Pulse Pulse Resp BP BP Pulse Ox 12/29/23 12:56 36.5 C 76 20 119/71 95 12/29/23 11:53 36.4 C L 73 18 105/67 93 12/29/23 11:20 36.4 C L 75 18 115/76 97 12/29/23 11:02 18 97 12/29/23 10:50 12/29/23 10:50 36.6 C 75 16 136/86 96 12/29/23 10:30 36.5 C 68 14 113/84 92 12/29/23 10:20 66 14 118/78 96 12/29/23 10:10 70 14 133/74 97 12/29/23 10:00 65 14 127/86 98 12/29/23 09:50 64 12 137/70 97 12/29/23 09:40 67 12 132/77 100 12/29/23 09:30 36.5 C 67 14 137/81 95 12/29/23 06:05 37.1 C 72 20 132/54 L 96 O2 Del Method O2 Flow Rate 12/29/23 12:56 Nasal Cannula 2 12/29/23 11:53 Nasal Cannula 2 12/29/23 11:20 Nasal Cannula 2 12/29/23 11:02 Nasal Cannula 2 12/29/23 10:50 Nasal Cannula 2 12/29/23 10:50 Nasal Cannula 2 12/29/23 10:30 Nasal Cannula 2 12/29/23 10:20 Nasal Cannula 2 12/29/23 10:10 Nasal Cannula 2 12/29/23 10:00 Nasal Cannula 2 12/29/23 09:50 Nasal Cannula 2 12/29/23 09:40 Oxymask 5 12/29/23 09:30 Oxymask 10 12/29/23 06:05 Room Air Diagnostic Findings Cervical Spine X-Ray 12/29/23 00:00 FL cervical 2-3V CLINICAL HISTORY: C5-C7 ACDF COMPARISON STUDY: None. FLUOROSCOPY TIME: 12 seconds FLUOROSCOPY IMAGES: 3 Ka,r: 2.0 mGy FINDINGS: Anterior cervical discectomy and fusion from C5 through C7. The hardware appears intact. An endotracheal tube and surgical drain are partially visualized. IMPRESSION: Fluoroscopic assistance as above. ACT 112: Negative or not required by law. Electronically signed by: Piero Burns M.D. 12/29/2023 11:33 AM Medications Administered Acetaminophen (Acetaminophen 500 Mg Tab) 1,000 mg PO PREOP BEVERLEY Stop: 12/29/23 18:00 Last Admin: 12/29/23 06:19 Dose: 1,000 mg Documented By: TDM Fentanyl Citrate (Fentanyl Citrate Pf 100 Mcg/2 Ml Vial) 25 mcg IV Q5M PRN PRN Reason: PACU Use Only-Pain Stop: 12/29/23 15:06 Last Admin: 12/29/23 10:21 Dose: 25 mcg Documented By: [facility] Gabapentin (Gabapentin 600 Mg Dose) 600 mg PO PREOP BEVERLEY Stop: 12/29/23 18:00 Last Admin: 12/29/23 06:19 Dose: 600 mg Documented By: TDM Lactated Ringer's (Lr) 1,000 mls @ 15 mls/hr IV .Q24H BEVERLEY Stop: 12/30/23 05:59 Last Infusion: 12/29/23 07:46 Dose: Infused Documented By: Admin: 12/29/23 06:20 Dose: 15 mls/hr Documented By: TDM Lactated Ringer's (Lr) 1,000 mls @ 60 mls/hr IV .[id number] BEVERLEY Stop: 12/29/23 22:39 Last Admin: 12/29/23 06:20 Dose: Not Given Documented By: TDM Vancomycin HCl 1,250 mg/ (Sodium Chloride) 275 mls @ 200 mls/hr IV PREOP BEVERLEY Stop: 12/29/23 18:00 Last Infusion: 12/29/23 10:41 Dose: Infused Documented By: Admin: 12/29/23 06:19 Dose: 200 mls/hr Documented By: TDM Sodium Chloride (Nss) 1,000 mls @ 100 mls/hr IV .Q10H BEVERLEY Stop: 01/28/24 11:05 Last Admin: 12/29/23 10:55 Dose: 100 mls/hr Documented By: TESFAYE Insulin Aspart (Insulin Aspart Per Unit Charge) 0 units SC ACHS BEVERLEY; Protocol Stop: 01/28/24 12:14 Last Admin: 12/29/23 12:37 Dose: 14 units Documented By: TESFAYE Co-signed By: SAGE Tramadol HCl (Tramadol Hcl 50 Mg Tablet) 50 - 100 mg PO Q4H PRN PRN Reason: Moderate-Severe pain & Pre PT Stop: 01/28/24 11:05 Last Admin: 12/29/23 11:57 Dose: 50 mg Documented By: TESFAYE Discontinued Medications Bupivacaine HCl/Epinephrine Bitart (Bupivacaine/Epinephrine 0.5% Mpf 1:200,000 30 Ml Vial) Confirm Administered Dose 30 ml .ROUTE .STK-MED ONE Stop: 12/29/23 07:19 Last Admin: 12/29/23 08:26 Dose: Not Given Documented By: HUONG Bupivacaine HCl/Epinephrine Bitart (Bupivacaine/Epinephrine 0.25% 1:200,000 30 Ml Vial) Confirm Administered Dose 30 ml .ROUTE .STK-MED ONE Stop: 12/29/23 07:19 Last Admin: 12/29/23 08:27 Dose: Not Given Documented By: HUONG Cefazolin Sodium (Cefazolin 330 Mg/Ml 1 Gm Vial) Confirm Administered Dose 990 mg .ROUTE .STK-MED ONE Stop: 12/29/23 07:19 Last Admin: 12/29/23 09:08 Dose: 990 mg Documented By: MICAELA Insulin Glargine (Lantus Per Unit Charge) 30 units SC ONE ONE; Protocol Stop: 12/29/23 12:16 Last Admin: 12/29/23 12:38 Dose: 30 units Documented By: TESFAYE Co-signed By: SAGE Miscellaneous ( Floseal Hemostatic Matrix 10ml) 10 ml TOP ONCE ONE Stop: 12/29/23 08:42 Last Admin: 12/29/23 10:41 Dose: Not Given Documented By: TESFAYE (3) Rheumatoid arthritis Rheumatoid arthritis location: multiple sites Rheumatoid factor presence: with rheumatoid factor Qualified Code(s): M05.79 - Rheumatoid arthritis with rheumatoid factor of multiple sites without organ or systems involvement (5) Diabetes mellitus, type 2 Diabetes mellitus complication status: without complication Diabetes mellitus fci insulin use: with shower screen installer use Qualified Code(s): E11.9 - Type 2 diabetes mellitus without complications; 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
[2023-12-29] MEDS: oxyCODONE HCL IR 5 MG TAB (IMMEDIATE RELEASE) PO PRN (14:49)
[2023-12-29] MEDS: CLINDAMYCIN/D5W 600 MG/50 ML BAG IV SCH (15:47)
[2023-12-29] MEDS ORDERED: VALSARTAN/SACUBITRIL 26/24MG TAB PO SCH (21:00)
[2023-12-29] MEDS: HYDROmorphone INJ 1 MG/ML SYRINGE IV PRN (21:12)
[2023-12-29] MEDS: clonazePAM 0.5 MG TAB PO SCH (21:30)
[2023-12-29] MEDS: LANTUS PER UNIT CHARGE SC SCH (21:31)
[2023-12-29] MEDS: ROSUVASTATIN CALCIUM 20 MG TAB PO SCH (21:32)
[2023-12-29] MEDS: DOCUSATE SODIUM/SENNA 50/8.6MG TAB PO SCH (21:47)
[2023-12-30] MEDS: POLYETHYLENE (MIRALAX) 17 GM PACK PO SCH (05:33)
[2023-12-30 06:18] LABS: Hematocrit (blood only) 38.1 % (37.0-47.0); Hemoglobin 12.7 g/dl (12.0-16.0); Mean Corpuscular Hemoglobin 31.3 pg (25.0-34.0); Mean Corpuscular Hgb Conc 33.3 g/dL (32.0-36.0); Mean Corpuscular Volume 93.8 fL (80.0-100.0); Mean Platelet Volume 9.1 fL (9.4-12.4); Platelet Count 267 K/uL (130-400); RDW Coefficient of Variation 12.7 % (11.5-14.5); RDW Standard Deviation 43.9 fL (36.4-46.3); Red Blood Count 4.06 M/uL (4.20-5.40); White Blood Count 10.48 K/ul (4.8-10.8)
[2023-12-30 07:11] LABS: Estimated Average Glucose 166 mg/dl; Hemoglobin A1C 7.4 % (4.5-5.6)
[2023-12-30 07:34] LABS: BUN Creatinine Ratio 25.9 (10-20); Calcium 8.4 mg/dl (8.6-10.3); Creatinine Clr Calc Pharmacy 121.3 ml/min; Est GFR (African American) 119.7 ml/min; Est GFR (Non-African American) 103.3 ml/min; Potassium 4.3 mmol/L (3.5-5.1)
[2023-12-30] MEDS: CHOLECALCIFEROL 25 MCG (1000 UNITS) TAB PO SCH (08:33)
[2023-12-30] MEDS: VENLAFAXINE HCL XR 150 MG CAPXR PO SCH (08:34)
[2023-12-30] MEDS: METOPROLOL SUCC 25MG EXT REL TAB PO SCH (08:34)
[2023-12-30] MEDS: MONTELUKAST SODIUM 10 MG TABLET PO SCH (08:34)
[2023-12-30] MEDS: dexAMETHasone 6 MG in SYRINGE 0 ML IV SCH (08:34)
[2023-12-30] MEDS: HYDROXYCHLOROQUINE SULFATE 200 MG TAB PO SCH (08:34)
[2023-12-30] MEDS: LANTUS PER UNIT CHARGE SC SCH (08:45)
[2023-12-30] MEDS ORDERED: NON-FORMULARY MEDICATION (Coenzyme Q10 [Co Q-10] 200 mg Capsule) PO SCH (09:00)
[2023-12-30] MEDS ORDERED: SPIRONOLACTONE 25 MG TAB PO SCH (09:00)
[2023-12-30] MEDS ORDERED: VITAMIN E PO SCH (09:00)
[2023-12-30] MEDS ORDERED: EMPAGLIFLOZIN 10 MG TAB PO SCH (09:00)
--- NOTE | 2023-12-30 12:01 | Discharge Summary ---
Date of Service December 30, 2023 Admission HPI Per Admitting Provider This is a 58-year-old female presents with chronic persistent neck and arm pain after failing extensive course of nonoperative care is here for surgical intervention. Principal Diagnosis Cervical spinal stenosis with radiculopathy Discharge Data Allergies Allergy/AdvReac Type Severity Reaction Status Date / Time atorvastatin Allergy Unknown Verified 12/29/23 06:13 celecoxib Allergy Unknown Verified 12/29/23 06:13 codeine Allergy Unknown Verified 12/29/23 06:13 divalproex sodium Allergy Unknown Verified 12/29/23 06:13 hydrocodone Allergy Unknown Verified 12/29/23 06:13 imipramine Allergy Tongue Verified 12/29/23 06:13 swelling, "funny feeling" penicillin G Allergy Hives Verified 12/29/23 06:13 Penicillins Allergy See Verified 12/29/23 06:13 comments pregabalin Allergy Unknown Verified 12/29/23 06:13 sertraline Allergy Tongue Verified 12/29/23 06:13 swelling, "funny feeling" Consultations 12/29/23 11:06 Consult Hospitalist Routine Procedures Performed Operation Date: 12/29/23 07:45 Actual Procedures p C5-C7 Anterior Cervical Discectomy Fusion with Spinal Cord Monitoring(Not Applicable) - Aung Zapien DO Ordered Studies 12/29/23 FL cervical 2-3V Routine Hospital Course (1) Cervical stenosis of spinal canal: Patient underwent anterior cervical discectomy and fusion tolerated this well was taken to orthopedic for postoperative. Postop patient progressed appropriately. Arm symptoms improved. Swallowing well. No hoarseness. Excellent strength testing. SAMIR drain decreasing appropriately. His subsidy discharged home. Discharge orders instructions from the chart for further review. Total Time Total Time Spent Total Time Spent (In Minutes): 20 minutes Discharge Plan Discharge Items Patient Disposition: Home - Self-Care Reason For Visit: Neck Pain, Cervical Spondylosis with Radiculopathy Discharge Diagnosis: Cervical spinal stenosis with radiculopathy Activity: As commented below Non-emergency contact: Primary Care Provider Call non-emergency contact if: you have any medication questions Follow-up/Referrals: PCP,NO [Physician] - Diet: Regular Addtl Attending Provider Instructions: ACTIVITY RECOMMENDATIONS: SELF CARE INSTRUCTIONS AFTER CERVICAL FUSIONS 1. No smoking. Smoking drastically decreases the chance of a solid fusion. 2. No bending, lifting more than 5 pounds, or twisting (roll like a log when turning in bed). 3. You may shower 3 days after surgery. Thoroughly dry wound. Do not soak in the tub. 4. Cervical collar: Must be worn at all times including sleeping. You may remove the brace only to bath, eat and if you are sitting in a recliner. 5. Please walk as much as you can for exercise. Gradually increase the distance that you walk as your endurance increases. SPECIAL CARE INSTRUCTIONS: VERY IMPORTANT TO READ AND REVIEW A. Do not take any anti-inflammatory medications (i.e. Indocin, Advil, Aspirin, Naprosyn, Aleve, Motrin, etc.) as these may inhibit the chance of a solid fusion. Tylenol is okay to take. B. Your surgical incision has been closed with a cosmetic suture under the skin that will dissolve in about 6 weeks. In 14 days, you can use a pair of clean scissors and cut the suture that is left outside of the skin at the ends of your incision. C. Complications are uncommon, but please contact us if you have any signs or symptoms of: 1. wound infection (fever higher than 102.5 degrees F, redness, separation of wound, drainage, or increasing pain from the incision) 2. blood clots in legs (pain, swelling, redness and warmth in legs) 3. urinary tract infection (fever higher than 102.5 degrees, burning upon urination or increased frequency of urination) 4. nerve problems (inability to walk on your toes or heels, numbness, loss of bowel or bladder control) 5. any other symptoms that concern you. D. Please call the office at if you have any concerns or questions about your operation or recovery. MANAGING PAIN AFTER SPINAL SURGERY 1. Narcotic medication is intended for short-term use and will be provided for surgical pain. Surgical pain usually lasts for a period of 4-6 weeks. Narcotic medication includes Percocet, Vicodin, Darvocet, Tylenol #3 or Lortab. 2. Longer-term pain is more appropriately treated with non-narcotic medication such as Tylenol ES. 3. Muscle spasm is not appropriately treated with narcotics. Muscle relaxers such as Soma, Flexeril or Skelaxin can be used along with Tylenol ES. 4. Remember that we all live with some "aches and pains". This is not unusual or uncommon after an injury or as we get older. 5. We will provide appropriate medication within the normal guidelines of their prescribed use. We will also be very cautious and aware of potential abuse and extended duration of patients' medication needs. 6. Please allow 2-3 days to process refills. Prescriptions will not be mailed but must be picked up at the office. FOLLOW UP VISIT: Keep your scheduled follow-up appointment. Any questions, please call the office at . Pending Studies at Discharge: No Stand-Alone Forms: My [facility] behaview, Smoking Cessation Medications and DC Order Prescriptions: New tramadol 50 mg tablet 50 mg PO Q6H PRN (Reason: pain, moderate) Qty: 20 0RF oxycodone 5 mg tablet 5 mg PO Q6H PRN (Reason: pain) Qty: 20 0RF Continued clonazepam 0.5 mg Tablet 0.25 mg PO BID PRN (Reason: Anxiety) Rx Instructions: Prescribed PRN, but patient takes regularly. venlafaxine 150 mg Capsule,Extended Release 24hr 150 mg PO QAM spironolactone 25 mg Tablet 25 mg PO QAM gabapentin 300 mg Capsule 300 mg PO HS PRN (Reason: Pain) montelukast 10 mg Tablet 10 mg PO QAM metoprolol succinate 25 mg Tablet Extended Release 24 Hr 25 mg PO QAM hydroxychloroquine 200 mg Tablet 200 mg PO QAM rosuvastatin 20 mg Tablet 20 mg PO HS coenzyme Q10 [Co Q-10] 200 mg Capsule 200 mg PO DAILY acetaminophen [Tylenol] 325 mg Capsule 650 mg PO QID PRN (Reason: Pain) insulin glargine [Lantus Solostar U-100 Insulin] 100 unit/mL (3 mL) Insulin Pen 46 unit SUBCUT HS Rx Instructions: She took 23 units pre-op. cholecalciferol (vitamin D3) [Vitamin D3] 50 mcg (2,000 unit) Capsule 50 mcg PO QAM Jardiance 10 mg Tablet 10 mg PO QAM Entresto 24-26 mg Tablet 1 tab PO BID Rhofade 1 % Cream 1 applic TOPICAL QAM baclofen 5 mg Tablet 5 mg PO DAILY PRN (Reason: muscle spasms) Khalida Trinidad U-100 Insulin 100 unit/mL Insulin Pen 8 unit SUBCUT UD Rx Instructions: 8 units before breakfast, 12 units before dinner; is allowed to take 5 units for lunch or a snack; sliding scale dose up 2 units for every 50 above 200, but no higher than 6 units Stellalise 1 applic PO QID PRN (Reason: oral pain) Rx Instructions: do not eat or drink for 20 minutes after application vitamin E 2 tab PO QAM Discontinued meloxicam 15 mg Tablet 7.5 mg PO Q2D No Action meloxicam 15 mg tablet 15 mg PO Q2D Rx Instructions: Takes 15mg daily, then alternating with 7.5mg daily. methylprednisolone 4 mg tablet 2 mg PO Q2D Discharge Orders: Discharge Order (Routine); Ordered 12/30/23 Ordered By: Aung Zapien Admission Data Admit Date/Time: 12/29/23 09:18 Attending Provider: Aung Zapien Admit Provider: Aung Zapien Primary Care Provider: Henrietta Rivera Other Providers: Little Tellez
--- NOTE | 2023-12-30 13:51 | Hospitalist Progress Note ---
Date of Service December 30, 2023 Assessment & Plan (1) S/P spinal surgery: (2) Cervical stenosis of spinal canal: Plan: POD#1 S/P ACDF today by Dr. Zapien Activity and wound care orders as per ortho Pain control with bowel regimen as per ortho PT/OT as appropriate Monitor H/H for acute blood loss anemia and transfuse blood products PRN; Pre-op Hgb of 14.3 EBL: 10mL (3) Rheumatoid arthritis: (4) Undifferentiated connective tissue disease: Plan: -Chronic, stable -Is on chronic steroids, methylprednisolone 2mg Q2D. -Home meloxicam is on hold per primary team -Continue hydroxychloroquine 200mg PO QAM -Follows with rheumatology, Dr. Hernandes (5) Diabetes mellitus, type 2: Plan: -Insulin dependent, last A1C unknown -A1c- 7.4% -Appreciate input and management from glycemic control pharmacist. -Reconciled home dose of insulin lispro (6) Nonischemic cardiomyopathy: Plan: -07/22 echo report EF 50-55% and no diastolic dysfunction noted -Appears euvolemic -Continue Entresto, metoprolol (7) PVCs (premature ventricular contractions): (8) Palpitations: Plan: -Hx of palpitations, PVCs -Follows with cardiology, Leatha Luna -Continue metoprolol (9) Fatty liver disease, nonalcoholic: Plan: -Hx of chronically elevated LFTs -Reviewed 06/15/23, AST 60, ALT 78, Alk phos 67, T bili 0.5 -Follows with GI (10) Anxiety: Plan: -Continue venlafaxine -Continue clonazepam PRN (11) Hyperlipidemia: Plan: -Continue rosuvastatin DVT Prophylaxis: SCDs Code Status: Full Code - Discussed with patient, does not prolonged life support if poor prognosis. PCP: Dr. Henrietta Rivera, Dispo: Per primary team Patient seen in collaboration with Dr. Hanson. Please see addendum. Please note the above document was generated using voice recognition software. It may contain grammatical, syntax or spelling errors. Any formal questions or concerns about the content, text or information contained within the body of this dictation should be directly addressed to the provider for clarification Admission and Anticipated Discharge Date Admission Date: December 29, 2023 Subjective Patient seen and examined at bedside. Comfortable; not in distress. Denies fever, chills, chest pain, shortness of breath, abdominal pain or urinary symptoms. No significant overnight events Review of Systems Review of Systems: All systems reviewed & are unremarkable except as noted in Subjective Physical Exam Physical Exam: General Appearance: WD/WN, vitals as above, NAD, sitting up in bed, pleasant, conversing. Neck: White bandage present on the anterior aspect of the neck, no bleeding noted from this surgical access site. Respiratory: Normal respiratory effort, lungs clear to auscultation, no wheeze, rales, rhonchi. No accessory muscle use. Cardiovascular: Regular rate, rhythm, no murmur, normal peripheral pulses, no BLE edema. Patient is wearing SCDs. Abdomen/GI: Normal bowel sounds, soft, nontender, no hepatosplenomegaly Extremities/Musculoskeletal: No cyanosis or clubbing; bilateral production recorder strength strong and intact, equal bilaterally. Neurologic: PERRL, EOMI, accommodation nl, no face palsy, no dysarthria, CN's II-XI intact bilaterally and moves all extremities Psychiatric: A+Ox3, euthymic affect Skin: No rashes, normal color, warm/dry Results & Data Results & Data Vital Signs (Past 12 Hours) Vital Signs Temp Pulse Resp BP Pulse Ox O2 Del Method O2 Flow Rate 12/30/23 12:35 36.8 C 73 16 120/69 91 12/30/23 12:35 36.8 C 73 16 120/69 91 12/30/23 12:18 36.8 C 73 16 120/69 91 12/30/23 11:51 36.8 C 73 16 120/69 91 Room Air 12/30/23 11:09 76 18 91 Room Air 12/30/23 07:25 82 16 94 Room Air 12/30/23 05:35 36.6 C 72 16 106/66 94 Room Air 12/30/23 03:36 36.7 C 75 16 103/65 95 Nasal Cannula 2 12/30/23 03:08 67 18 97 Nasal Cannula 2 (3) Rheumatoid arthritis Rheumatoid arthritis location: multiple sites Rheumatoid factor presence: with rheumatoid factor Qualified Code(s): M05.79 - Rheumatoid arthritis with rheumatoid factor of multiple sites without organ or systems involvement (5) Diabetes mellitus, type 2 Diabetes mellitus alf 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
[2024-01-02] MEDS ORDERED: methylPREDNISolone 4 MG TAB PO SCH (13:45)
== END 2023-12-30 13:33 | disposition home or self-care (01) ==
LOC: 3E 05:47 → ASU 05:47